=== PATIENT | female | born 1980 | race Caucasian/White ===

== ENCOUNTER → 2020-07-12 10:40 | Outpatient (BNVA) | payer MEDICAID, SELFPAY | PROVIDERS: PCP Internal Medicine; Visit Provider Advanced Practice Midwife | DX: Z32.01 Encounter for pregnancy test, result positive (principal) | CPT/HCPCS: 81025; 99212 ==

== ENCOUNTER 2020-07-19 10:33 | Outpatient (REF) | payer MEDICAID, SELFPAY ==
--- NOTE | ~2020-07-19 | US_ITS ---
EXAMINATION: OBSTETRICAL ULTRASOUND, FIRST TRIMESTER HISTORY: 40-year-old with the secondary amenorrhea LMP: 06/09/2020 COMPARISON: 04/26/2017 TECHNIQUE: Real time transabdominal imaging with color and M-mode Doppler. FINDINGS: Uterus measures 7.8 x 5.3 cm. An ill-defined heterogeneous area in the right myometrium which could be either small fibroid or uterine contraction. This areas measuring 1.8 x 1.2 x 1.4 cm. There is a small, ill-defined, intrauterine cyst measuring 7.5 mm x 8.3 mm. No yoke sac or embryonic pole noted. The cyst is too small to assign gestational age. Both maternal ovaries are seen and appear normal. No fluid in the cul-de-sac. GESTATIONAL AGE: 1. GA from LMP: 5.5 wks 2. GA from AUA: N/A wks ESTIMATED DATE OF DELIVERY: 1. OWEN from LMP: 03/16/2021 2. OWEN from AUA: N/A US/US transvaginal IMPRESSION: 1. No definitive intrauterine gestational sac noted. However there is a small ill-defined cyst in the uterine cavity which could represent very early IUP. Clinical correlation suggested. 2. Normal ovaries and adnexa No further ultrasound examination is been scheduled today.
--- NOTE | ~2020-07-19 | US_ITS ---
EXAMINATION: OBSTETRICAL ULTRASOUND, FIRST TRIMESTER HISTORY: 40-year-old with the secondary amenorrhea LMP: 06/09/2020 COMPARISON: 04/26/2017 TECHNIQUE: Real time transabdominal imaging with color and M-mode Doppler. FINDINGS: Uterus measures 7.8 x 5.3 cm. An ill-defined heterogeneous area in the right myometrium which could be either small fibroid or uterine contraction. This areas measuring 1.8 x 1.2 x 1.4 cm. There is a small, ill-defined, intrauterine cyst measuring 7.5 mm x 8.3 mm. No yoke sac or embryonic pole noted. The cyst is too small to assign gestational age. Both maternal ovaries are seen and appear normal. No fluid in the cul-de-sac. GESTATIONAL AGE: 1. GA from LMP: 5.5 wks 2. GA from AUA: N/A wks ESTIMATED DATE OF DELIVERY: 1. OWEN from LMP: 03/16/2021 2. OWEN from AUA: N/A US/US OB <= 14 weeks fetus IMPRESSION: 1. No definitive intrauterine gestational sac noted. However there is a small ill-defined cyst in the uterine cavity which could represent very early IUP. Clinical correlation suggested. 2. Normal ovaries and adnexa No further ultrasound examination is been scheduled today.
== END 2020-07-19 10:34 | disposition home or self-care (01) ==
LOC: HO.US 10:33
PROVIDERS: Visit Provider Advanced Practice Midwife
DX: N92.6 Irregular menstruation, unspecified (principal)
CPT/HCPCS: 76801; 76817; 76830

== ENCOUNTER 2020-07-31 14:33 | Outpatient (REF) | payer MEDICAID, SELFPAY ==
[2020-07-31 16:20] LABS: HCG Quantitative 190 mIU/mL
== END 2020-07-31 14:34 | disposition home or self-care (01) ==
LOC: HO.LAB 14:33
PROVIDERS: PCP Internal Medicine; Visit Provider Advanced Practice Midwife
DX: O20.0 Threatened abortion (principal); Z3A.00 Weeks of gestation of pregnancy not specified
CPT/HCPCS: 36415; 84702

== ENCOUNTER → 2020-08-01 14:10 | Outpatient (BNVA) | payer MEDICAID, SELFPAY | PROVIDERS: PCP Internal Medicine; Visit Provider Advanced Practice Midwife ==

== ENCOUNTER 2020-08-01 15:17 | Outpatient (REF) | payer MEDICAID, SELFPAY ==
--- NOTE | ~2020-08-01 | US_ITS ---
EXAMINATION: US OBSTETRICAL FOLLOW UP WITH BIOPHYSICAL PROFILE CLINICAL INFORMATION: Threatened COMPARISON: Previous exam 07/19/2020 TECHNIQUE: Transabdominal and transvaginal pelvic ultrasound was performed. Transvaginal exam was performed for better visualization of the uterus and ovaries. FINDINGS: The uterus is normal in size and shape. No intrauterine is seen. Endometrial thickness is normal and measures 9 cm. The previously identified small endometrial cyst on 07/19/2020 exam is no longer seen. The cervix is normal. The right ovary is normal-appearing and measures 2 x 1.7 x 1.7 cm. The left ovary measures 2.3 x 1.3 x 1.5 cm and contains a small 1.2 x 1.1 x 1 cm complex cyst similar to previous exam. There is no fluid in the pelvis. US/US OB follow up IMPRESSION: No intrauterine seen. Differential would include an early intrauterine , spontaneous and ectopic . Correlation with quantitative beta hCG levels recommended.
--- NOTE | ~2020-08-01 | US_ITS ---
EXAMINATION: US OBSTETRICAL FOLLOW UP WITH BIOPHYSICAL PROFILE CLINICAL INFORMATION: Threatened COMPARISON: Previous exam 07/19/2020 TECHNIQUE: Transabdominal and transvaginal pelvic ultrasound was performed. Transvaginal exam was performed for better visualization of the uterus and ovaries. FINDINGS: The uterus is normal in size and shape. No intrauterine is seen. Endometrial thickness is normal and measures 9 cm. The previously identified small endometrial cyst on 07/19/2020 exam is no longer seen. The cervix is normal. The right ovary is normal-appearing and measures 2 x 1.7 x 1.7 cm. The left ovary measures 2.3 x 1.3 x 1.5 cm and contains a small 1.2 x 1.1 x 1 cm complex cyst similar to previous exam. There is no fluid in the pelvis. US/US OB transvaginal IMPRESSION: No intrauterine seen. Differential would include an early intrauterine , spontaneous and ectopic . Correlation with quantitative beta hCG levels recommended.
== END 2020-08-01 15:18 | disposition home or self-care (01) ==
LOC: HO.US 15:17
PROVIDERS: Visit Provider Advanced Practice Midwife
DX: O20.0 Threatened abortion (principal)
CPT/HCPCS: 76816; 76817; 99212

== ENCOUNTER 2020-08-02 12:08 | Outpatient (REF) | payer MEDICAID, SELFPAY ==
[2020-08-02 13:56] LABS: HCG Quantitative 65 mIU/mL
== END 2020-08-02 12:09 | disposition home or self-care (01) ==
LOC: HO.LAB 12:08
PROVIDERS: Visit Provider Advanced Practice Midwife
DX: O03.9 Complete or unspecified spontaneous abortion without complication (principal)
CPT/HCPCS: 36415; 84443; 84702; 86850

== ENCOUNTER 2020-08-08 13:32 | Outpatient (REF) | payer MEDICAID, SELFPAY ==
[2020-08-08 15:08] LABS: HCG Quantitative 3 mIU/mL
== END 2020-08-08 13:33 | disposition home or self-care (01) ==
LOC: HO.LAB 13:32
PROVIDERS: Visit Provider Advanced Practice Midwife
DX: O03.9 Complete or unspecified spontaneous abortion without complication (principal)
CPT/HCPCS: 36415; 84702

== ENCOUNTER → 2020-08-14 11:29 | Outpatient (BNVA) | payer MEDICAID, SELFPAY | PROVIDERS: Visit Provider Obstetrics & Gynecology | DX: O03.9 Complete or unspecified spontaneous abortion without complication (principal) | CPT/HCPCS: 99212 ==

== ENCOUNTER 2021-09-01 14:34 | Outpatient (REF) | payer MEDICAID, SELFPAY ==
--- NOTE | ~2021-09-01 | XR_ITS ---
EXAMINATION: XR CHEST CLINICAL INFORMATION: Preprocedure COMPARISON: None TECHNIQUE: 2 views of the chest were obtained. FINDINGS: No significant abnormality is noted involving the heart, lungs, mediastinum, bony thorax or soft tissues. XR/XR chest 2V IMPRESSION: Unremarkable examination.
== END 2021-09-01 14:35 | disposition home or self-care (01) ==
LOC: HO.XRAY 14:34
PROVIDERS: PCP Internal Medicine; Visit Provider Internal Medicine
DX: Z01.818 Encounter for other preprocedural examination (principal)
CPT/HCPCS: 71046

== ENCOUNTER 2023-04-28 11:01 | Outpatient (REF) | payer MEDICAID, SELFPAY ==
[2023-04-28 14:37] LABS: MANUAL DIFF FLAG NO
[2023-04-28 14:42] LABS: Basophils Percent Auto 0.7 % (0-2); Eosinophils Absolute Auto 0.1 X10*3/uL (0.0-0.4); Hematocrit 42.9 % (37.0-47.0); Hemoglobin 13.4 g/dl (12.0-16.0); Imm Gran Abs Auto 0.03 X10*3/uL (0.00-0.03); Imm Gran Pct Auto 0.5 % (0.0-0.4); Lymphocytes Absolute Auto 1.2 X10*3/uL (1.2-4.9); Lymphocytes Percent Auto 21.3 % (20-40); Mean Corpuscular HGB Conc 31.2 g/dl (31.0-35.0); Mean Corpuscular Hemoglobin 28.3 pg (27.0-33.0); Mean Corpuscular Volume 90.5 fL (80.0-98.0); Mean Platelet Volume 9.4 fL (9.4-12.3); Monocytes Absolute Auto 0.4 X10*3/uL (0.1-1.2); Monocytes Percent Auto 6.6 % (2-11); Neutrophils Percent Auto 69.9 % (45-73); Platelet Count 362 X10*3/uL (160-400); Red Blood Count 4.74 X10*6/uL (4.20-5.50); Red Cell Distribution Width 13.3 % (11.0-16.0); White Blood Count 5.7 X10*3/uL (4.8-10.8)
[2023-04-28 15:12] LABS: Alanine Aminotransferase 15 U/L (0-31); Albumin Level 4.1 g/dL (3.5-5.0); Alkaline Phosphatase 72 U/L (39-117); Anion Gap 12 (12-20); Aspartate Amino Transferase 13 U/L (5-31); Bilirubin Direct 0.2 mg/dL (0.0-0.5); Bilirubin Total 0.3 mg/dL (0.0-1.0); Blood Urea Nitrogen 11 mg/dL (9-16); Calcium 9.7 mg/dL (8.4-10.2); Carbon Dioxide 29 mmol/L (22-29); Chloride 104 mmol/L (96-108); Cholesterol 165 mg/dL (<200); Estimated Glomerular Filt Rate > 60; Glucose Random 97 mg/dL (60-115); HDL Cholesterol 50 mg/dL (>40); LDL Cholesterol Calculated 97 mg/dL (<100); Potassium 4.5 mmol/L (3.3-5.1); Sodium 140 mmol/L (135-145); Total Protein 7.8 g/dL (6.5-8.0); Triglycerides 91 mg/dL (<150)
[2023-04-28 15:18] LABS: TSH reflex Free T4 0.64 uIU/mL (0.32-4.0)
[2023-04-28 15:28] LABS: Vitamin B12 303 pg/mL (200-900)
== END 2023-04-28 11:02 | disposition home or self-care (01) ==
LOC: HO.CHCLDS 11:01
PROVIDERS: Visit Provider Internal Medicine
DX: Z00.00 Encounter for general adult medical examination without abnormal findings (principal); R03.0 Elevated blood-pressure reading, without diagnosis of hypertension; R53.83 Other fatigue; R42 Dizziness and giddiness
CPT/HCPCS: 36415; 80048; 80061; 80076; 82607; 84443; 85025

== ENCOUNTER 2023-05-07 08:37 | Outpatient (REF) | payer MEDICAID, SELFPAY ==
[2023-05-07 12:23] LABS: Folate 10.3 ng/mL (> or = 4.0)
[2023-05-11 08:23] LABS: Methylmalonic Acid 102 nmol/L (87-318)
== END 2023-05-07 08:38 | disposition home or self-care (01) ==
LOC: HO.HHCL 08:37
PROVIDERS: Visit Provider Internal Medicine
DX: R53.83 Other fatigue (principal)
CPT/HCPCS: 36415; 82746; 83921

== ENCOUNTER 2024-09-14 13:49 | Outpatient (REF) | payer MEDICAID, SELFPAY ==
[2024-09-14 14:42] LABS: MANUAL DIFF FLAG NO
[2024-09-14 14:51] LABS: Basophils Absolute Auto 0.1 X10*3/uL (0.0-0.2); Basophils Percent Auto 0.5 % (0-2); Eosinophils Absolute Auto 0.1 X10*3/uL (0.0-0.4); Hematocrit 40.4 % (37.0-47.0); Hemoglobin 12.8 g/dl (12.0-16.0); Imm Gran Abs Auto 0.04 X10*3/uL (0.00-0.03); Imm Gran Pct Auto 0.4 % (0.0-0.4); Lymphocytes Absolute Auto 1.9 X10*3/uL (1.2-4.9); Lymphocytes Percent Auto 17.9 % (20-40); Mean Corpuscular HGB Conc 31.7 g/dl (31.0-35.0); Mean Corpuscular Hemoglobin 27.5 pg (27.0-33.0); Mean Corpuscular Volume 86.9 fL (80.0-98.0); Mean Platelet Volume 9.3 fL (9.4-12.3); Monocytes Absolute Auto 0.6 X10*3/uL (0.1-1.2); Monocytes Percent Auto 5.3 % (2-11); Neutrophils Absolute Auto 7.7 x10*3/uL (2.0-8.3); Neutrophils Percent Auto 74.9 % (45-73); Platelet Count 366 X10*3/uL (160-400); Red Blood Count 4.65 X10*6/uL (4.20-5.50); Red Cell Distribution Width 13.1 % (11.0-16.0); White Blood Count 10.3 X10*3/uL (4.8-10.8)
[2024-09-14 15:28] LABS: Alanine Aminotransferase 17 U/L (0-31); Anion Gap 11 (12-20); Aspartate Amino Transferase 16 U/L (5-31); Bilirubin Total 0.2 mg/dL (0.0-1.0); Blood Urea Nitrogen 10 mg/dL (9-16); Carbon Dioxide 25 mmol/L (22-29); Chloride 106 mmol/L (96-108); Cholesterol 164 mg/dL (<200); Estimated Glomerular Filt Rate > 60; Glucose Random 88 mg/dL (60-115); HDL Cholesterol 38 mg/dL (>40); LDL Cholesterol Calculated 110 mg/dL (<100); Potassium 4.5 mmol/L (3.3-5.1); Sodium 137 mmol/L (135-145); Total Protein 7.8 g/dL (6.5-8.0); Triglycerides 83 mg/dL (<150)
[2024-09-14 15:41] LABS: Alkaline Phosphatase 96 U/L (39-117); TSH reflex Free T4 0.71 uIU/mL (0.32-4.0)
== END 2024-09-14 13:50 | disposition home or self-care (01) ==
LOC: HO.CHCLDS 13:49
PROVIDERS: Visit Provider Internal Medicine
DX: Z00.00 Encounter for general adult medical examination without abnormal findings (principal); R00.2 Palpitations
CPT/HCPCS: 36415; 80053; 80061; 84443; 85025

== ENCOUNTER 2024-12-01 10:47 | Outpatient (REF) | payer MEDICAID, SELFPAY ==
[2024-12-01 14:27] LABS: Anion Gap 12 (12-20); Blood Urea Nitrogen 9 mg/dL (9-16); Calcium 9.3 mg/dL (8.4-10.2); Carbon Dioxide 26 mmol/L (22-29); Chloride 104 mmol/L (96-108); Estimated Glomerular Filt Rate > 60; Glucose Random 96 mg/dL (60-115); Potassium 4.2 mmol/L (3.3-5.1); Sodium 138 mmol/L (135-145)
== END 2024-12-01 10:48 | disposition home or self-care (01) ==
LOC: HO.CHCLDS 10:47
PROVIDERS: Visit Provider Internal Medicine
DX: I10 Essential (primary) hypertension (principal)
CPT/HCPCS: 36415; 80048